=== PATIENT | male | born 1995 | race Two or more races ===

== ENCOUNTER 2024-05-21 23:12 | Emergency (ER) | payer OTHER ==
[~2024-05-21] VITALS: Ht 172.7 cm; Wt 75.0 kg
[2024-05-21 23:25] VITALS: TEMP 98.4
[2024-05-22] MEDS: ACETAMINOPHEN 500 MG TABLET PO ONE (00:20)
[2024-05-22] MEDS: IBUPROFEN 400 MG TABLET PO ONE (00:20)
[2024-05-22 00:43] VITALS: BP 130/71; PULSE 65; RESP 16; O2SAT 98
== END 2024-05-22 00:48 | disposition home or self-care (01) ==
LOC: EMS 23:42
DX: K02.9 Dental caries, unspecified (principal); R50.9 Fever, unspecified
CPT/HCPCS: 99283